=== PATIENT | male | born 1975 | race Caucasian/White ===

== ENCOUNTER 2018-09-14 19:13 | Emergency (ER) | payer OTHER ==
[2018-09-14 19:17] VITALS: BP 146/83; PULSE 71; RESP 16; TEMP 98.1
[2018-09-14] MEDS ORDERED: PROPARACAINE 0.5% OPHTH DROPS 15 ML BTL LEFT EYE STA (19:46)
--- NOTE | 2018-09-14 21:00 | ED ---
General Adult HPI - General Chief complaint: Eye Problems Stated complaint: Eye pain Source: patient, RN notes reviewed, old records reviewed Mode of arrival: ambulatory Limitations: no limitations - History of Present Illness Initial comments: 42-year-old male patient presents in ED with 3 days of left ocular irritation. Patient states he has a foreign body sensation in his eye. Patient denies discharge from eye. 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 Patient cannot recall specific injury to left eye recently. Patient has been taken some previously prescribed topical antibiotics as left eye to prevent infection. Patient states his vision is at baseline and says ocular irritation. Patient denies all other symptoms. Systemic: Pt denies fatigue, myalgia, fever/chills, rash. Pt denies weakness, night sweats, weight loss. Neuro: Pt denies headache, visual disturbances, syncope or pre-syncope. HEENT: Pt denies otalgia, rhinorrhea, pharyngitis or notable lymphadenopathy. Cardiopulmonary: Pt denies chest pain, SOB, heart palpitations, dyspnea on exertion. Abdominal/GI: Pt denies abdominal pain, n/v/d. : Pt denies dysuria, burning w/ urination, frequency/urgency. Denies new onset urinary or bowel incontinence. MSK: Pt denies myalgia, loss of strength or function in extremities. Neuro: Pt denies new onset weakness, paresthesias. - Related Data Previous Rx's Medication Instructions Recorded Tobramycin 0.3% Ophth Soln [Tobrex 2 drop LEFT EYE Q6HR 5 Days #1 09/14/18 0.3% Ophth Soln] bottle Allergies Allergy/AdvReac Type Severity Reaction Status Date / Time aspirin Allergy Nausea & Verified 09/14/18 19:17 Vomiting & Diarrhea Sulfa (Sulfonamide Allergy Unknown Verified 09/14/18 19:17 Antibiotics) Childhood Review of Systems ROS Statement: Those systems with pertinent positive or pertinent negative responses have been documented in the HPI. ROS Other: All systems not noted in ROS Statement are negative. Past Medical History Past Medical History: No Reported History History of Any Multi-Drug Resistant Organisms: None Reported Past Surgical History: No Surgical Hx Reported Past Psychological History: Anxiety Smoking Status: Never smoker Past Alcohol Use History: Rare Past Drug Use History: None Reported General Exam - General Exam Comments Initial Comments: Constitutional: NAD, AOX3, Pt has pleasant affect. HEENT: NC/AT, trachea midline, neck supple, no lymphadenopathy. Posterior pharynx non erythematous, without exudates. External ears appear normal, without discharge. Mucous membranes moist. Eyes PERRLA, EOM intact. Mild injection noted left eye, no drainage. Fluorescent stain and with lamp evaluation displayed mild corneal abrasion at 7:00. No siedels sign. There is no scleral icterus. No pallor noted. Vision 20/25 bilaterally. Cardiopulmonary: RRR, no murmurs, rubs or gallops, no JVD noted. Lungs CTAB in anterior and posterior pitts. No peripheral edema. Abdominal exam: Abdomen soft and non-distended. Abdomen non-tender to palpation in all 4 quadrants. Bowel sounds active in LLQ. No hepatosplenomegaly. No ecchymosis Neuro: CN II-XII grossly intact. No nuchal rigidity. MSK: No posterior calf tenderness bilaterally, homans sign negative bilaterally. Posterior tibialis and radial pulse +2 bilaterally. Sensation intact in upper and lower extremities. Full active ROM in upper and lower extremities, 5/5 stregnth. Limitations: no limitations Course Vital Signs 09/14/18 19:15 Temperature 98.1 F Pulse Rate 71 Respiratory 16 Rate Blood Pressure 146/83 O2 Sat by Pulse 98 Oximetry Medical Decision Making - Medical Decision Making 42-year-old male patient presents to ED with left ocular irritation for 3 days. No drainage, no noted injury. Physical exam displayed a mild corneal abrasion to left eye. Visual acuity intact. Extra ocular movements intact. Patient prescribed topical tobramycin for eyes. Patient given referral for admittance attendant to call in morning. Pt to follow up with PCP in 1-2 days. Patient to return to ED if new signs or symptoms develop including decreased visual acuity, worsening pain, any other symptoms. Case discussed with Dr. Bryan. Disposition Clinical Impression: Corneal abrasion Disposition: HOME SELF-CARE Condition: Good Instructions: Corneal Abrasion (ED) Additional Instructions: Patient to adhere to previously discussed treatment plan and will take medication(s) as directed. Patient to follow up with PCP in 1-2 days. Patient to return to ED if symptoms do not improve. Prescriptions: Tobramycin 0.3% Ophth Soln [Tobrex 0.3% Ophth Soln] 2 drop LEFT EYE Q6HR 5 Days #1 bottle Is patient prescribed a controlled substance at d/c from ED?: No Referrals: None,Stated [Primary Care Provider] - 1-2 days Arnoldo Croft MD [STAFF PHYSICIAN] - 1-2 days Time of Disposition: 20:59
== END 2018-09-14 21:08 | disposition home or self-care (01) ==
LOC: EC 19:13
DX: S05.02XA Injury of conjunctiva and corneal abrasion without foreign body, left eye, initial encounter (principal); Z88.6 Allergy status to analgesic agent; X58.XXXA Exposure to other specified factors, initial encounter
CPT/HCPCS: 99284